=== PATIENT | female | born 2000 | race Caucasian/White ===

== ENCOUNTER 2021-01-20 08:08 | Outpatient (RCR) | payer BC, SELFPAY ==
[2021-01-20 08:47] VITALS: BP 116/76
== END 2021-03-10 09:39 | disposition home or self-care (01) ==
LOC: ANHOBOP 08:08
PROVIDERS: Visit Provider Obstetrics & Gynecology
DX: O24.419 Gestational diabetes mellitus in pregnancy, unspecified control (principal); Z3A.32 32 weeks gestation of pregnancy
CPT/HCPCS: 59025

== ENCOUNTER 2021-01-27 13:20 | Outpatient (CLI) | payer BC, SELFPAY ==
[2021-01-27] VITALS (15 sets, daily range): BP systolic 96–127; BP diastolic 68–81; PULSE 92–121; TEMP 36.8; BMI 31.6
[2021-01-27 14:42] LABS: Basophils Percent Auto 0.2 % (0.2-1.2); Eosinophils Absolute Auto 0.1 K/mm3 (0-0.3); Eosinophils Percent Auto 0.5 % (0-4.4); Hematocrit 38.4 % (37.0-47.0); Immature Granulocyte Absolute 0.04 K/mm3 (0.00-0.031); Immature Granulocyte Percent A 0.4 % (0-0.5); Lymphocytes Absolute Auto 1.69 K/mm3 (0.9-3.2); Lymphocytes Percent Auto 17.8 % (18.3-44.2); Mean Corpuscular HGB Conc 33.9 g/dl (32-36); Mean Corpuscular Hemoglobin 31.6 pg (26-34); Mean Corpuscular Volume 93.2 fl (80-100); Mean Platelet Volume 10.8 fl (7.4-10.4); Monocytes Absolute Auto 0.7 K/mm3 (0.1-0.6); Monocytes Percent Auto 7.6 % (2.6-8.5); Neutrophils Percent Auto 73.5 % (45.5-73.1); Platelet Count Result 204 k/mm3 (150-375); Red Blood Count 4.12 M/mm3 (4.2-5.4); Red Cell Distribution Width 12.9 % (11.5-14.5); White Blood Count 9.5 K/mm3 (4.5-10.0)
[2021-01-27 14:54] LABS: Add Urine Microscopic? YES; Appearance Urine Clear (Clear); Bilirubin Urine Negative (Negative); Blood Urine Negative (Negative); Color Urine Yellow (Yellow); Glucose Urine UA 2+ mg/dL (Negative); Ketones Urine Negative (Negative); Leukocyte Esterase Ur Negative LEU/UL (Negative); Mucus Urine Rare /lpf; Nitrate Urine Negative (Negative); Protein Urine Negative (Negative); Squamous Epithelial Cell Urine Occasional /hpf (Few); Urobilinogen Urine Negative mg/dL (<2.0); WBC Urine 0-3 /hpf
[2021-01-27 14:56] LABS: Alanine Aminotransferase 10 U/L (4-35); Albumin Level 3.5 g/dL (3.5-5.1); Alkaline Phosphatase 166 U/L (38-126); Anion Gap 5 mmol/L (8-16); Aspartate Amino Transferase 20 U/L (14-36); Bilirubin,Total 0.2 mg/dL (0.2-1.3); Blood Urea Nitrogen 13 mg/dL (7-17); Calcium 8.9 mg/dL (8.4-10.2); Carbon Dioxide 23 mmol/L (22-30); Chloride 103 mmol/L (98-107); Estimated Glomerular Filt Rate > 60; Glucose 93 mg/dL (65-110); Potassium 3.5 mmol/L (3.4-5.0); Sodium 131 mmol/L (137-145); Uric Acid 3.4 mg/dL (2.5-7.5)
[2021-01-27] MEDS: ACETAMINOPHEN 325 MG TABLET 650 MG PO (15:01)
[2021-01-27 15:41] LABS: Total Protein Urine Random 6 mg/dL
[2021-01-27 15:43] LABS: Creatinine Urine 94.5 mg/dL; Ur Ttl Prot Creatinine Ratio 0.06 mg/mg (0-0.20)
--- NOTE | 2021-01-27 16:14 | PC.NURSE ---
Pt just finished eating. Pt's headache is down to a 3.
--- NOTE | 2021-01-27 16:23 | PC.NURSE ---
Dr. Ugarte informed of this 33 1/7 wk gestationa pt with Type 2DM on insulin with headache and blurred vision that prompted HIP evaluation, NST only became reactive after pt was able to eat. informed of lab results and BP's. Headache has decreased from a 6 to a 3. Orders received for discharge.
== END 2021-01-27 16:30 | disposition home or self-care (01) ==
LOC: ANHOBOP 13:25 → ANHOBPP 13:27
PROVIDERS: Visit Provider Obstetrics & Gynecology
DX: O13.9 Gestational [pregnancy-induced] hypertension without significant proteinuria, unspecified trimester (principal); Z3A.00 Weeks of gestation of pregnancy not specified
CPT/HCPCS: 36415; 59025; 80053; 81001; 82570; 84156; 84550; 85025; 99199; A9270

== ENCOUNTER 2021-02-23 00:01 | Inpatient (IN) | payer BC, SELFPAY ==
[2021-02-23] VITALS (27 sets, daily range): BP systolic 93–129; BP diastolic 50–85; PULSE 78–141; RESP 18–20; TEMP 36.3–37.4; BMI 33.3
--- OUTSIDE RECORDS SUMMARY | 2021-02-23 00:04 | XMS_ITS | Encounter Summary ---
:2000 Author Care Team Providers Name Role Phone Junito Clement Primary Care Provider [phone] Reason for Visit OB visit Assessment and Plan Assessment Note Patient is ___weeks . Discu ssed plan. 1. Routine care Discussion Note: None recorded.Patient educational handouts: No information available. Plan of Care Reminders Provider Appointments Ob Routine Idalia Hedy 02/28/2021 MD Mily 2:45PM ? Ob Routine Idalia Th erese 03/07/2021 MD Mily 2:45PM ? Ob Routine Idalia Th erese 03/14/2021 MD Mily 2:45PM Lab None ? ? recorded. Referral None ? ? recorded. Procedures None ? ? recorded. Surgeries None ? ? recorded. Imaging None ? ? recorded. Medications Name Start Date ? ? Baqsimi 3 mg/actuation nasal spray ? USE 1 SPRAY INTO THE NOSE NEEDED DIRECTED BD Ultra-Fine Mini Pen Needle 31 gauge x 05/11 ? USE TWICE DAILY DIRECTED Contour Next Test Strips ? USE 1 STRIP TO CHECK GLUCOSE ONCE DAILY Dexcom G6 Phonograph Needle Tip Maker misc ? USE DIRECTED
--- OUTSIDE RECORDS SUMMARY | 2021-02-23 00:04 | XMS_ITS | Encounter Summary ---
:2000 Author Care Team Providers Name Role Phone Junito Clement Primary Care Provider [phone] Reason for Visit None recorded. Assessment and Plan 1. Pre-existing type 2 diabetes mellitus in ? US, obstetric, follow-up Discussion Note: None recorded.Patient educational handouts: No [...] recorded. Surgeries None ? ? recorded. Imaging [place] [facility], Follow-up 02/14/2021 Medications Name Start Date ? ? Baqsimi 3 mg/actuation nasal spray ? USE 1 SPRAY INTO THE NOSE NEEDED DIRECTED BD Ultra-Fine Mini Pen Needle 31 gauge x 3/16 ? USE TWICE DAILY DIRECTED Contour Next Test Strips ? USE 1 STRIP TO CHECK GLUCOSE ONCE DAILY Dexcom G6 Filler And Trimmer misc ?
--- OUTSIDE RECORDS SUMMARY | 2021-02-23 00:04 | XMS_ITS | Encounter Summary ---
:2000 Author Care Team Providers Name Role Phone Junito Clement Primary Care Provider [phone] Reason for Visit OB visit Assessment and Plan 1. Group B Streptococcus carrier 2. Pre-existing type 2 diabetes mellitus in 3. Depressive disorder Discussion Note: None recorded.Patient educational handouts: No [...] Ultra-Fine Mini Pen Needle 31 gauge x /16 ? USE TWICE DAILY DIRECTED Contour Next Test Strips ? USE 1 STRIP TO CHECK GLUCOSE ONCE DAILY Dexcom G6 Seed Analysis Laboratory Assistant misc ? USE
--- OUTSIDE RECORDS SUMMARY | 2021-02-23 00:04 | XMS_ITS | Encounter Summary ---
:2000 Author Care Team Providers Name Role Phone Junito Clement Primary Care Provider [phone] Reason for Visit None recorded. Assessment and Plan 1. Pre-existing type 2 diabetes mellitus in ? non-stress test Discussion Note: None recorded.Patient educational handouts: No [...] recorded. Surgeries None ? ? recorded. Imaging Non-stress [place] Test 02/14/2021 Medications Name Start Date ? ? Baqsimi 3 mg/actuation nasal spray ? USE 1 SPRAY INTO THE NOSE NEEDED DIRECTED BD Ultra-Fine Mini Pen Needle 31 gauge x 05/11 ? USE TWICE DAILY DIRECTED Contour Next Test Strips ? USE 1 STRIP TO CHECK GLUCOSE ONCE DAILY Dexcom G6 Loan Processor misc ? U
--- OUTSIDE RECORDS SUMMARY | 2021-02-23 00:04 | XMS_ITS | Encounter Summary ---
:2000 Author Care Team Providers Name Role Phone Junito Clement Primary Care Provider [phone] Reason for Visit None recorded. Assessment and Plan 1. condition affecting obs tetrical care of mother ? US, obstetric, biophysical profile + non-stress test Discussion Note: None recorded.Patient educational handouts: No information available. Plan of Care Reminders Provider Appointments Ob Routine Idalia Hedy 02/28/2021 MD Mily 2:45PM ? Ob Routine Idalia Th erese 03/07/2021 MD Mily 2:45PM ? Ob Routine Idalia Th erese 03/14/2021 MD Mily 2:45PM Lab None recorded. ? ? Referral None recorded. ? ? Procedures None recorded. ? ? Surgeries None recorded. ? ? Imaging US, Obstetric, [facility] Biophysical Profile + 02/10/2021 Non-stress Test Medications Name Start Date ? ? Baqsimi 3 mg/actuation nasal spray ? USE 1 SPRAY INTO THE NOSE NEEDED DIRECTED BD Ultra-Fine Mini Pen Needle 31 gauge x 05/11 ? USE TWICE DAILY DIRECTED Contour Next Test Strips ? USE 1 STRIP TO CHECK GLUCOSE ONCE DAILY
--- OUTSIDE RECORDS SUMMARY | 2021-02-23 00:04 | XMS_ITS | Encounter Summary ---
:2000 Author Care Team Providers Name Role Phone Junito Clement Primary Care Provider [phone] Reason for Visit None recorded. Assessment and [...] ? recorded. Imaging Non-stress [place] Test 02/17/2021 Medications Name Start Date ? ? Baqsimi 3 mg/actuation nasal spray ? USE 1 SPRAY INTO THE NOSE NEEDED DIRECTED BD Ultra-Fine Mini Pen Needle 31 gauge x /16 ? USE TWICE DAILY DIRECTED Contour Next Test Strips ? USE 1 STRIP TO CHECK GLUCOSE ONCE DAILY Dexcom G6 Mixer Operator Tablets misc ? U
--- OUTSIDE RECORDS SUMMARY | 2021-02-23 00:04 | XMS_ITS | Encounter Summary ---
:2000 Author Care Team Providers Name Role Phone Junito Clement Primary Care Provider [phone] Reason for Visit None recorded. Assessment and [...] ? recorded. Imaging Non-stress [place] Test 02/21/2021 Medications Name Start Date ? ? Baqsimi 3 mg/actuation nasal spray ? USE 1 SPRAY INTO THE NOSE NEEDED DIRECTED BD Ultra-Fine Mini Pen Needle 31 gauge x /16 ? USE TWICE DAILY DIRECTED Contour Next Test Strips ? USE 1 STRIP TO CHECK GLUCOSE ONCE DAILY Dexcom G6 Hand Sewer misc ? U
--- OUTSIDE RECORDS SUMMARY | 2021-02-23 00:04 | XMS_ITS ---
:2000 Author Care Team Providers Name Role Phone MILES RANGEL Primary Care Provider [phone] Allergies Code Code System Name Reaction Severity Status Onset 7 RxNorm Metformin Abdominal Pain Moderate to Active ? Severe Medications Name Status Start Date Stop Date ? ? Baqsimi 3 mg/actuation nasal spray Active ? Not available USE 1 SPRAY INTO THE NOSE NEEDED DIRECTED BD Ultra-Fine Mini Pen Needle 31 gauge x 3/16 Active ? Not available USE TWICE DAILY DIRECTED Contour Next Test Strips Active ? Not kelly ilable USE 1 STRIP TO CHECK GLUCOSE ONCE DAILY Dexcom G6 [facility] Assistant misc Active ? Not avai lable USE DIRECTED Dexcom G6 Sensor device Active ? Not avai lable CHANGE SENSOR EVERY 10 DAYS Dexcom G6 Transmitter device Active ? Not available CHANGE EVERY 90 DAYS doxycycline hyclate 100 mg capsule Completed ? 11/30/2020 TAKE 1 CAPSULE BY MOUTH TWICE DAILY FOR 7 DAYS fluticasone propionate 50 mcg/actuation Completed ? 01/14/2021 nasal spray,suspension Humulin N NPH U-100 Insulin (isophane Active ? Not available susp) 100 unit/mL subcutaneous Humulin N NPH U-100 Insulin KwikPen 100 unit/mL (3 mL) subcutane ous Active ? Not available INJECT 34 UNITS UNDER THE SKIN IN THE MORNING AND 36 UNITS AT B EDTIME insulin aspart (U-100) 100 unit/mL (3 Active ? Not available mL) subcutaneous pen insulin lispro (U-100) 100 unit/mL Active ? Not available subcutaneous pen
--- OUTSIDE RECORDS SUMMARY | 2021-02-23 00:05 | XMS_ITS | Encounter Summary ---
:2000 Author Care Team Providers Name Role Phone Junito Clement Primary Care Provider [phone] Reason for Visit None recorded. Assessment and Plan None recorded.Discussion Note: None recorded.Patient educational handouts: No information [...] TO CHECK GLUCOSE ONCE DAILY Dexcom G6 Screen Roller misc ? USE DIRECTED Dexcom G6 Sensor device ? CHANGE SENSOR EVERY 10 DAYS Dexcom G6 Transmitter device ? CHANGE EVERY 90 DAYS
--- OUTSIDE RECORDS SUMMARY | 2021-02-23 00:05 | XMS_ITS | Encounter Summary ---
:2000 Author Care Team Providers Name Role Phone Junito Clement Primary Care Provider [phone] Reason for Visit OB visit Assessment and Plan 1. Type 2 diabetes mellitus ? HbA1c (hemoglobin A1c), bl ood 2. Routine care Discussion Note: None recorded.Patient educational handouts: No information available. Plan of Care Reminders Provider Appointments Ob Routine Idalia Hedy 02/28/2021 MD Mily 2:45PM ? Ob Routine Idalia Ketan randhawa 03/07/2021 MD Mily 2:45PM ? Ob Routine Idalia Ketan ere 03/14/2021 MD Mily 2:45PM Lab HbA1C [facility] (Hemoglobin a1C), 11/30/2020 Hospital (Lab) Blood Referral None ? ? recorded. Procedures None [...]
--- OUTSIDE RECORDS SUMMARY | 2021-02-23 00:05 | XMS_ITS | Encounter Summary ---
:2000 Author Care Team Providers Name Role Phone Junito Clement Primary Care Provider [phone] Reason for Visit None recorded. Assessment and [...] ? recorded. Imaging Non-stress [place] Test 02/10/2021 Medications Name Start Date ? ? Baqsimi 3 mg/actuation nasal spray ? USE 1 SPRAY INTO THE NOSE NEEDED DIRECTED BD Ultra-Fine Mini Pen Needle 31 gauge x 05/11 ? USE TWICE DAILY DIRECTED Contour Next Test Strips ? USE 1 STRIP TO CHECK GLUCOSE ONCE DAILY Dexcom G6 Assistant Professor Of Music misc ? U
--- OUTSIDE RECORDS SUMMARY | 2021-02-23 00:05 | XMS_ITS | Encounter Summary ---
:2000 Author Care Team Providers Name Role Phone Junito Clement Primary Care Provider [phone] Reason for Visit OB visit Assessment and Plan 1. Type 2 diabetes mellitus 2. Depressive disorder 3. Routine care Discussion Note: None recorded.Patient educational [...] TO CHECK GLUCOSE ONCE DAILY Dexcom G6 Salt Refiner misc ? USE DIRECTED
--- OUTSIDE RECORDS SUMMARY | 2021-02-23 00:05 | XMS_ITS | Encounter Summary ---
:2000 Author Care Team Providers Name Role Phone Junito Clement Primary Care Provider [phone] Reason for Visit OB visit Assessment and Plan Assessment Note Patient is ___weeks . Discu ssed plan. 1. Pre-existing type 2 diabetes mellitus in 2. Group B Streptococcus carrier Discussion Note: None recorded.Patient educational handouts: No [...] Ultra-Fine Mini Pen Needle 31 gauge x 16 ? USE TWICE DAILY DIRECTED Contour Next Test Strips ? USE 1 STRIP TO CHECK GLUCOSE ONCE [place]
--- OUTSIDE RECORDS SUMMARY | 2021-02-23 00:05 | XMS_ITS | Encounter Summary ---
:2000 Author Care Team Providers Name Role Phone Junito Clement Primary Care Provider [phone] Reason for Visit None recorded. Assessment and [...] ? recorded. Imaging Non-stress [place] Test 01/31/2021 Medications Name Start Date ? ? Baqsimi 3 mg/actuation nasal spray ? USE 1 SPRAY INTO THE NOSE NEEDED DIRECTED BD Ultra-Fine Mini Pen Needle 31 gauge x / ? USE TWICE DAILY DIRECTED Contour Next Test Strips ? USE 1 STRIP TO CHECK GLUCOSE ONCE DAILY Dexcom G6 Brush Polisher misc ? U
--- OUTSIDE RECORDS SUMMARY | 2021-02-23 00:05 | XMS_ITS | Encounter Summary ---
:2000 Author Care Team Providers Name Role Phone Junito Clement Primary Care Provider [phone] Reason for Visit None recorded. Assessment and [...] ? recorded. Imaging Non-stress [place] Test 02/03/2021 Medications Name Start Date ? ? Baqsimi 3 mg/actuation nasal spray ? USE 1 SPRAY INTO THE NOSE NEEDED DIRECTED BD Ultra-Fine Mini Pen Needle 31 gauge x /16 ? USE TWICE DAILY DIRECTED Contour Next Test Strips ? USE 1 STRIP TO CHECK GLUCOSE ONCE DAILY Dexcom G6 Route Clerk misc ? U
--- OUTSIDE RECORDS SUMMARY | 2021-02-23 00:05 | XMS_ITS | Encounter Summary ---
:2000 Author Care Team Providers Name Role Phone Junito Clement Primary Care Provider [phone] Reason for Visit OB visit Assessment and Plan 1. Type 2 diabetes mellitus 2. Routine care Discussion Note: None recorded.Patient [...] TO CHECK GLUCOSE ONCE DAILY Dexcom G6 Software Developer Consultant misc ? USE DIRECTED Dexcom G6 Sensor device ?
--- OUTSIDE RECORDS SUMMARY | 2021-02-23 00:05 | XMS_ITS | Encounter Summary ---
:2000 Author Care Team Providers Name Role Phone Junito Clement Primary Care Provider [phone] Reason for Visit OB problem UTI Assessment and Plan 1. Urinary symptoms ? urinalysis, dipstick ? nitrofurantoin monohydrate /macrocrystals 100 mg capsule Discussion Note: None recorded.Patient educational handouts: No information available. Plan of Care Reminders Provider Appointments Ob Routine Idalia Hedy 02/28/2021 MD Mily 2:45PM ? Ob Routine Idalia Th erese 03/07/2021 MD Mily 2:45PM ? Ob Routine Idalia Th erese 03/14/2021 MD Mily 2:45PM Lab Urinalysis, Deangelo rush Dipstick 12/17/2020 Referral None ? ? recorded. Procedures None ? ? recorded. Surgeries None ? ? recorded. Imaging None ? ? recorded. Medications Name Start Date ? ? Baqsimi 3 mg/actuation nasal spray ? USE 1 SPRAY INTO THE NOSE NEEDED DIRECTED BD Ultra-Fine Mini Pen Needle 31 gauge x 16 ? USE TWICE DAILY DIRECTED Contour Next Test Strips ? U
--- OUTSIDE RECORDS SUMMARY | 2021-02-23 00:05 | XMS_ITS | Encounter Summary ---
:2000 Author Care Team Providers Name Role Phone Junito Clement Primary Care Provider [phone] Reason for Visit None recorded. Assessment and Plan 1. Pre-existing type 2 diabetes mellitus in Diet teaching completed over the phone r /t pts schd. Pt is a type II diabetic. [facility] and [facility] started her on a fast acting insulin and she is on a long acting insulin as well. [facility]2020 and will f/u with [facility] with BS in the meanttime since they started her on a fast acting insulin. Went over ideal ranges for FBS and pp BS. Went over carb counting and carb ranges for each m eal/snack. Gave ideas for foods to eat for meals/snacks. Discussed drink options and to avoid soda and juice. Pt mainly drinks water and sometimes diet soda. Told pt to cut out soda if possible and try sugar free water enhancers instead. Told pt she can go online to ADA for meal options or to look up low carb meal recipes online for ideas as well. Went over nutr ition label with pt and how to read tota l number of carbs on nutrition label and discussed importance of serving sizes as well to stay within her carb range for each meal. Pt was eating a lot of fruit a nd went over serving sizes for fruit and that it is high in sugars and will have to watch this closely. Pt is going out of town this weekend and wanted tips on eating out. Told pt to not get any fried f oods. If she gets something on a bun to cut out the bun. Try to get meat/protein with vegetables as a side. Pts questions were answered and pt will call with any concerns with sugars, but otherwise will f/u on BS with MFM. Pt verbalized under standing. bnGINGER marie ? non-stress test Discussion Note: None recorded.Patient educational handouts: No information available. Plan of Care Reminders Provider Appointments Ob Routine Idalia Hedy 02/28/2021 MD Mily 2:45PM
--- OUTSIDE RECORDS SUMMARY | 2021-02-23 00:05 | XMS_ITS | Encounter Summary ---
:2000 Author Care Team Providers Name Role Phone Junito Clement Primary Care Provider [phone] Reason for Visit None recorded. Assessment and [...] Ob Routine Idalia Th erese 03/14/2021 MD Mliy 2:45PM Lab None recorded. ? ? Referral None recorded. ? ? Procedures None recorded. ? ? Surgeries None recorded. ? ? Imaging US, Obstetric, [facility] Biophysical Profile + 02/03/2021 Non-stress Test Medications Name Start Date ? ? Baqsimi 3 mg/actuation nasal spray ? USE 1 SPRAY INTO THE NOSE NEEDED DIRECTED BD Ultra-Fine Mini Pen Needle 31 gauge x /16 ? USE TWICE DAILY DIRECTED Contour Next Test Strips ? USE 1 STRIP TO CHECK GLUCOSE ONCE DAILY
--- OUTSIDE RECORDS SUMMARY | 2021-02-23 00:05 | XMS_ITS | Encounter Summary ---
:2000 Author Care Team Providers Name Role Phone Junito Clement Primary Care Provider [phone] Reason for Visit OB visit Assessment and Plan 1. Depressive disorder 2. Group B Streptococcus carrier 3. Pre-existing type 2 diabetes mellitus in Discussion Note: None recorded.Patient educational handouts: No [...] TO CHECK GLUCOSE ONCE DAILY Dexcom G6 Chief Catalyst Operator misc ? USE
--- OUTSIDE RECORDS SUMMARY | 2021-02-23 00:05 | XMS_ITS | Encounter Summary ---
:2000 Author Care Team Providers Name Role Phone Junito Clement Primary Care Provider [phone] Reason for Visit OB problem Assessment and Plan 1. Bacterial vaginosis in pregna ncy ? metronidazole 0.75 % vagin al gel Discussion Note: None recorded.Patient educational handouts: No [...] TO CHECK GLUCOSE ONCE DAILY Dexcom G6 Welding Engineer misc ? USE DIRECTED Dexcom G6 Sensor device ?
[2021-02-23 00:40] LABS: Basophils Percent Auto 0.2 % (0.2-1.2); Eosinophils Absolute Auto 0.1 K/mm3 (0-0.3); Eosinophils Percent Auto 0.8 % (0-4.4); Hematocrit 37.4 % (37.0-47.0); Hemoglobin 12.9 g/dL (12.0-15.0); Immature Granulocyte Absolute 0.06 K/mm3 (0.00-0.031); Immature Granulocyte Percent A 0.5 % (0-0.5); Lymphocytes Absolute Auto 2.61 K/mm3 (0.9-3.2); Lymphocytes Percent Auto 23.3 % (18.3-44.2); Mean Corpuscular HGB Conc 34.5 g/dl (32-36); Mean Corpuscular Hemoglobin 31.2 pg (26-34); Mean Corpuscular Volume 90.3 fl (80-100); Mean Platelet Volume 10.9 fl (7.4-10.4); Monocytes Absolute Auto 0.8 K/mm3 (0.1-0.6); Neutrophils Absolute Auto 7.6 K/mm3 (1.3-6.7); Neutrophils Percent Auto 68.2 % (45.5-73.1); Platelet Count Result 219 k/mm3 (150-375); Red Blood Count 4.14 M/mm3 (4.2-5.4); Red Cell Distribution Width 13.7 % (11.5-14.5); White Blood Count 11.2 K/mm3 (4.5-10.0)
--- NOTE | 2021-02-23 00:43 | LDADM ---
This patient, Soni Jolley, was admitted to Labor/Delivery/Recovery 109 on 02/23/21 at 00:01. Plans for labor, pain management and were discussed with patient. Patient/family oriented to hospital policies and general routines including ID bracelet, bed and alarms, visiting hours, pain management, procedures, bathroom and other care routines, personal items, smoking policy, room service/diet and guest tray routines, security routines, and visiting hours. Patient/Family are encouraged to report perceived risks to care and to ask questions if they do not understand what they are told or what they should do. See OBIX for further documentation.
[2021-02-23 00:59] LABS: Alanine Aminotransferase 16 U/L (4-35); Albumin Level 3.6 g/dL (3.5-5.1); Alkaline Phosphatase 217 U/L (38-126); Anion Gap 3 mmol/L (8-16); Aspartate Amino Transferase 25 U/L (14-36); Bilirubin,Total 0.2 mg/dL (0.2-1.3); Blood Urea Nitrogen 14 mg/dL (7-17); Calcium 8.9 mg/dL (8.4-10.2); Carbon Dioxide 19 mmol/L (22-30); Chloride 108 mmol/L (98-107); Estimated CRCL calculation 135 ml/min; Estimated Glomerular Filt Rate > 60; Glucose 145 mg/dL (65-110); Potassium 3.9 mmol/L (3.4-5.0); Sodium 130 mmol/L (137-145)
[2021-02-23] MEDS: DINOPROSTONE 10 MG VAG INSERT VAGINAL ×2 (01:05→14:12)
[2021-02-23 04:30] LABS: Glucose Point of Care 101 mg/dl (65-105)
--- NOTE | 2021-02-23 06:22 | WPDANESEPP ---
Anes - Eval Pre Procedure Procedure: labor epidural Date/Time: 02/23/21 06:22 Surgeon: ami Preop Diagnosis: pain during labor Pre Op Diagnosis: IOL Patient Data Age: 20 Gender: F Height: 1.52 m Weight: 77.5 kg Last Vital Signs Temp 36.4 C L 02/23/21 04:27 Pulse 85 02/23/21 03:01 BP 93/59 L 02/23/21 03:01 Allergies Allergy/AdvReac Type Severity Reaction Status Date / Time metformin AdvReac Nausea Verified 02/23/21 01:38 Home Medications Medication Instructions Recorded Confirmed Type insulin NPH isoph U-100 human 40 unit SUBCUT QACBREAK 01/27/21 02/23/21 History [Humulin N NPH Insulin KwikPen] insulin NPH isoph U-100 human 48 unit SUBCUT HS 01/27/21 02/23/21 History [Humulin N NPH Insulin KwikPen] insulin lispro [Humalog KwikPen 20 unit SUBCUT QACBREAK 01/27/21 02/23/21 History Insulin] insulin lispro [Humalog KwikPen 28 unit SUBCUT QACDINNER 01/27/21 02/23/21 History Insulin] insulin lispro [Humalog KwikPen 28 unit SUBCUT QACLUNCH 01/27/21 02/23/21 History Insulin] sertraline 50 mg PO DAILY 01/27/21 02/23/21 History aspirin [Aspirin Low Dose] 162 mg PO DAILY 02/12/21 02/23/21 History Laboratory Tests 02/23/21 02/23/21 02/23/21 00:28 00:28 00:28 WBC 11.2 K/mm3 H K/mm3 (4.5-10.0) RBC 4.14 M/mm3 L M/mm3 (4.2-5.4) Hgb 12.9 g/dL g/dL (12.0-15.0) Hct 37.4 % % (37.0-47.0) MCV 90.3 fl fl (80-100) MCH 31.2 pg pg (26-34) MCHC 34.5 g/dl g/dl (32-36) RDW 13.7 % % (11.5-14.5) Plt Count 219 k/mm3 k/mm3 (150-375) MPV 10.9 fl H fl (7.4-10.4) Immature Gran % (Auto) 0.5 % % (0-0.5) Neut % (Auto) 68.2 % % (45.5-73.1) Lymph % (Auto) 23.3 % % (18.3-44.2) [place] % (Auto) 7.0 % % (2.6-8.5) Eos % (Auto) 0.8 % % (0-4.4) Baso % (Auto) 0.2 % % (0.2-1.2) Lymph # (Auto) 2.61 K/mm3 K/mm3 (0.9-3.2) [place] # (Auto) 0.8 K/mm3 H K/mm3 (0.1-0.6) Eos # (Auto) 0.1 K/mm3 K/mm3 (0-0.3) Baso # (Auto) 0.0 K/mm3 K/mm3 (0.0-0.1) Abs Immat Gran (auto) 0.06 K/mm3 H K/mm3 (0.00-0.031) Absolute Neuts (auto) 7.6 K/mm3 H K/mm3 (1.3-6.7) Absolute Nucleated RBC 0.0 K/mm3 K/mm3 (0.0-0.012) Nucleated RBC % 0.0 % % (0.0-0.2) Sodium 130 mmol/L L mmol/L (137-145) Potassium 3.9 mmol/L mmol/L (3.4-5.0) Chloride 108 mmol/L H mmol/L (98-107) Carbon Dioxide 19 mmol/L L mmol/L (22-30) Anion Gap 3 mmol/L L mmol/L (8-16) BUN 14 mg/dL mg/dL (7-17) Creatinine 0.50 mg/dL L mg/dL (0.7-1.0) Estim Creat Clear Calc 135 ml/min ml/min Estimated GFR > 60 (59 - ) Glucose 145 mg/dL H mg/dL (65-110) POC Capillary Glucose Calcium 8.9 mg/dL mg/dL (8.4-10.2) Total Bilirubin 0.2 mg/dL mg/dL (0.2-1.3) AST 25 U/L U/L (14-36) ALT 16 U/L U/L (4-35) Alkaline Phosphatase 217 U/L H U/L (38-126) Total Protein 6.0 g/dL L g/dL (6.3-8.2) Albumin 3.6 g/dL g/dL (3.5-5.1) RPR Pending Blood Type Antibody Screen 02/23/21 02/23/21 01:17 04:27 WBC RBC Hgb Hct MCV MCH MCHC RDW Plt Count MPV Immature Gran % (Auto) Neut % (Auto) Lymph % (Auto) [place] % (Auto) Eos % (Auto) Baso % (Auto) Lymph # (Auto) [place] # (Auto) Eos # (Auto) Baso # (Auto) Abs Immat Gran (auto) Absolute Neuts (auto) Absolute Nucleated RBC Nucleated RBC % Sodium Potassium Chloride Carbon Dioxide Anion Gap
[2021-02-23 07:11] LABS: Glucose Point of Care 127 mg/dl (65-105)
--- NOTE | 2021-02-23 07:39 | PM.IMHP ---
H&P: HPI History of Present Illness Date/Time: 02/23/21 07:39 Chief Complaint: induction of labor Narrative: Soni is a 20yo G1 at 37.0 for IOL for uncontrolled DM2. MFM has managed insulin and recommended delivery at 37w. has also been complicated by GBS pos, depression on zoloft, and CF carrier, but FOB neg. EFW was 55% most recently. Review of Systems Review of Systems: All systems reviewed & are unremarkable except as noted in HPI and below PMFSH Past Medical History Medical History (Updated 02/23/21 @ 06:23 by Nell Maradiaga CRNA) Depression Gestational diabetes mellitus (GDM) affecting eighth IUP (intrauterine ), incidental Obesity (BMI 30-39.9) Family History Family History (Updated 02/12/21 @ 14:49 by Leatha Khan RN) Grandparent Hypertension Grandparent Hypertension Grandparent Breast cancer in female Social History Social History Smoking status: Never smoker Substance use: never Spiritual care concerns: No Meds Home Medications and Allergies Home Medications Medication Instructions Recorded Confirmed Type insulin NPH isoph U-100 human 40 unit SUBCUT QACBREAK 01/27/21 02/23/21 History [Humulin N NPH Insulin KwikPen] insulin NPH isoph U-100 human 48 unit SUBCUT HS 01/27/21 02/23/21 History [Humulin N NPH Insulin KwikPen] insulin lispro [Humalog KwikPen 20 unit SUBCUT QACBREAK 01/27/21 02/23/21 History Insulin] insulin lispro [Humalog KwikPen 28 unit SUBCUT QACDINNER 01/27/21 02/23/21 History Insulin] insulin lispro [Humalog KwikPen 28 unit SUBCUT QACLUNCH 01/27/21 02/23/21 History Insulin] sertraline 50 mg PO DAILY 01/27/21 02/23/21 History aspirin [Aspirin Low Dose] 162 mg PO DAILY 02/12/21 02/23/21 History Allergies Allergy/AdvReac Type Severity Reaction Status Date / Time metformin AdvReac Nausea Verified 02/23/21 01:38 Vital Signs Vital Signs - 24 hr 02/23/21 00:28 02/23/21 00:30 02/23/21 00:45 Temperature 97.4 F L Pulse Rate 100 102 H 96 Respiratory Rate Blood Pressure 128/76 117/77 126/73 02/23/21 01:00 02/23/21 01:15 02/23/21 01:31 Temperature Pulse Rate 89 91 93 Respiratory Rate Blood Pressure 120/72 129/84 121/74 02/23/21 01:45 02/23/21 02:00 02/23/21 02:16 Temperature Pulse Rate 97 78 92 Respiratory Rate Blood Pressure 110/78 129/79 120/74 02/23/21 02:30 02/23/21 02:45 02/23/21 03:01 Temperature Pulse Rate 89 82 85 Respiratory Rate Blood Pressure 122/80 93/51 L 93/59 L 02/23/21 04:27 02/23/21 07:03 Temperature 97.5 F L 98.5 F Pulse Rate 93 Respiratory Rate 18 Blood Pressure 127/68 Exam Const: General: no acute distress Resp: Effort & Inspection: normal respiratory effort Auscultation: clear to auscultation bilaterally Cardio: Rate: regular rate Rhythm: regular rhythm GI: GI Palp: Yes Soft to palpation Extrem: General: normal to inspection H&P: Results Labs Labs: Short CBC 02/23/21 Range/Units 00:28 WBC 11.2 H (4.5-10.0) K/mm3 Hgb 12.9 (12.0-15.0) g/dL Hct 37.4 (37.0-47.0) % Plt Count 219 (150-375) k/mm3 [facility] 02/23/21 00:28 Sodium 130 L Potassium 3.9 Chloride 108 H Carbon Dioxide 19 L BUN 14 Creatinine 0.50 L Glucose 145 H Calcium 8.9 Liver Function 02/23/21 Range/Units 00:28 Total Bilirubin 0.2 (0.2-1.3) mg/dL AST 25 (14-36) U/L ALT 16 (4-35) U/L Alkaline Phosphatase 217 H (38-126) U/L Albumin 3.6 (3.5-5.1) g/dL Assessment and Plan Additional Plan Here for induction of labor-uncontrolled DM2 GBS pos cervidil, may need second cervidil. half of long acting insulin this am, full short acting this am, may have breakfast and lunch. FHT category 1
[2021-02-23] MEDS: INSULIN HUMAN NPH (*BKC) 100 UNITS/ML 20 UNITS SUB-Q (09:26)
[2021-02-23] MEDS: INSULIN ASPART (*BKC) 100 UNITS/ML 20 UNITS SUB-Q (09:27)
[2021-02-23 09:30] LABS: Glucose Point of Care 181 mg/dl (65-105)
[2021-02-23 10:30] LABS: Glucose Point of Care 166 mg/dl (65-105)
[2021-02-23 13:06] LABS: Rapid Plasma Reagin Non-Reactive (NonReactive)
[2021-02-23] MEDS: INSULIN ASPART (*BKC) 100 UNITS/ML 28 UNITS SUB-Q ×2 (13:21→17:35)
[2021-02-23 13:42] LABS: Glucose Point of Care 154 mg/dl (65-105)
[2021-02-23] MEDS: INSULIN HUMAN NPH (*BKC) 100 UNITS/ML 24 UNITS SUB-Q (21:10)
[2021-02-23] MEDS: INSULIN HUMAN REGULAR (*BKC) 100 UNITS/ML 8 UNITS SUB-Q (21:11)
[2021-02-23] MEDS: ACETAMINOPHEN 325 MG TABLET 650 MG PO (21:30)
[2021-02-24] VITALS (251 sets, daily range): BP systolic 50–139; BP diastolic 24–100; PULSE 61–175; RESP 18–20; TEMP 36.4–37.5; O2SAT 96–100
[2021-02-24] MEDS: LACTATED RINGERS 1,000 ML 125 ML IV CONT ×5 (02:20→22:21)
[2021-02-24] MEDS: OXYTOCIN 30 UNITS/NS 500 ML 30 UNITS/500 ML BAG 6 UNITS IV CONT (02:21)
[2021-02-24] MEDS: AMPICILLIN 2 GM/NS 100 ML 2 GM/100 ML BAG IVPB (02:21)
[2021-02-24] MEDS: AMPICILLIN 1 GM/NS 50 ML 1 GM/50 ML BAG IVPB ×5 (06:28→22:28)
[2021-02-24] MEDS: SERTRALINE HCL 50 MG TABLET PO (07:39)
[2021-02-24] MEDS: INSULIN HUMAN NPH (*BKC) 100 UNITS/ML 20 UNITS SUB-Q (07:40)
[2021-02-24] MEDS: fentaNYL CITRATE INJ (*CRX) 100 MCG/2 ML VIAL 50 MCG IV PUSH ×2 (08:16→09:39)
[2021-02-24] MEDS: ONDANSETRON INJ 4 MG/2 ML VIAL IV PUSH (09:43)
--- NOTE | 2021-02-24 16:38 | PM.OBPNLAB ---
Pain Control Date/time seen: 02/24/21 0825 VSS and afebrile Contractions irregular FHR category 1 Cervix 1-2/70/-2 AROM moderate amount of clear odorless fluid Anticipate
[2021-02-25] VITALS (161 sets, daily range): BP systolic 91–198; BP diastolic 54–171; PULSE 25–236; RESP 16–20; TEMP 36.8–38.1; O2SAT 86–100
[2021-02-25] MEDS: AMPICILLIN 1 GM/NS 50 ML 1 GM/50 ML BAG IVPB ×4 (02:57→17:53)
[2021-02-25] MEDS: ONDANSETRON INJ 4 MG/2 ML VIAL IV PUSH (05:21)
[2021-02-25] MEDS: LACTATED RINGERS 1,000 ML 125 ML IV CONT (05:24)
--- NOTE | 2021-02-25 09:17 | WPDHPUPDATE1 ---
History and Physical Update Update Date/Time: 02/25/21 09:17 History and Physical has been reviewed, including an updated exam of the patient. Pt has been complete and pushing for 2 hours. She did move baby to +1 station, +2 with pushing, but is exhausted and large caput. We attempted a vaccuum assisted vaginal delivery at +2 station, OA position. Over three contractions, three pulls, with three popoffs, the baby did descend but the descent stopped at +2 to +3 every time. Due to maternal exhaustion and failure to descend, will proceed with section. Discussed RBA, pt agrees readily. Ancef and azithromycin.
--- NOTE | 2021-02-25 09:31 | P.PCNOB_ITS ---
OB - Delivery Note Procedure Delivery date: 02/25/21 Procedure: primary low transverse section events: Prolonged Rupture of Membrane Intrapartal events: Prolonged Labor > 20 hours, Ceph-Pelvic Disproportion and F ailure to Progress in Labor Induction method: AROM, per pitocin protocol and per cervidil protocol Delivery monitor: external FHT and internal uterine Route of delivery: Indication for instrumentation: maternal exhaustion Laceration Description: None Specimen: Yes (placenta) Quantitative Blood Loss (ml): 310 Anesthesia type: General (epidural not adequate, spinal placed, level was high, so then received GETA) Disposition: floor Complications: none Narrative: Following failed VAVD (see previous note), the patient was taken to the OR and her epidural was dosed. It was noted that she did not have adequate anesthesia so a spinal was placed. FHT were checked before the spinal and after. After spinal they were 110s and mom's HR was 140. She was placed in dorsal supine position with left lateral tilt. SCDs and ramírez had previously been placed. She was prepped and draped in the normal sterile fashion. A Pfannensteil skin incision was made and carried through to the underlying layer of fascia. The fascia was incised in the midline and then extended laterally using Romero scissors. The muscles were in the midline and the peritoneum was entered bluntly. The peritoneal incision was extended inferiorly and superiorly with care to avoid the bladder. The bladder blade was then inserted, the vesicouterine peritoneum was grasped, incised with Metzenbaum scissors, and a bladder flap created. The bladder blade was reinserted. A low transverse uterine incision was made with a scalpel and extended bluntly. AROM was performed and fluid was noted to have thick meconium. A nurse elevated the head from below so it could be delivered, which it was then easily. The remainder of the baby followed, the nuchal cord was reduced. The baby was stimulated, the cord was clamped and cut, and the baby was handed off immediately for resuscitation. Cord blood was obtained and the placenta was then removed manually. The uterus was exteriorized. A moist lap sponge was used to curette the endometrium. The uterine incision was then closed with one layer of 0-Vicryl in a running, locking fashion. Good hemostasis was noted, despite poor tone of the uterus. We treated the atony with pitocin, methergine, and hemabate. The posterior cul de sac was irrigated with normal saline and cleared of all clot and debris. The uterus was returned to the abdomen. Both lateral gutters were then irrigated. The rectus muscles were inspected and found to be hemost atic. The fascia was reapproximated using 0-Vicryl in running fashion. The subcutaneous tissue was irrigated with normal saline and made hemostatic with Bovie electrocautery. The subcutaneous tissue was reapproximated with a layer of running 2-0 plain gut. The skin was then closed with 4-0 Vicryl in a subcuticular fashion. Steri strips and a bandage were applied. The uterus was evacuated. The patient tolerated the procedure very well. All counts were correct. She was awakened from general anesthesia and taken to the recovery room in good condition. [place] Baby Date of : 02/25/21 Time of : 10:04 Weeks of gestation at delivery: 37 Infant gender: Female Weight (pounds): 6 Weight (ounces): 9 presentation: vertex Placenta delivery description: Manual Removal cord vessel description: 3 Vessels and Nuchal Cord Narrative: apgars per nursery
[2021-02-25] MEDS: ceFAZolin 2 GM/D5W 50 ML 2 GM/50 ML BAG IVPB (09:35)
--- NOTE | 2021-02-25 10:45 | SUR.PHASEI ---
Pt arrived to recovery room via stretcher. Oral airway removed by AUTOMATIC CAR WASH ATTENDANT. Pt drowsy but wakes to name.
--- NOTE | 2021-02-25 10:55 | SUR.PHASEI ---
at bedside with RN assessing pt. Uterus somewhat boggy still but midline with scant bleeding. MD wants cytotec 800. MD remains at bedside.
[2021-02-25] MEDS: miSOPROStol 200 MCG TABLET 1000 MCG (11:00)
--- NOTE | 2021-02-25 11:13 | PM.OBPNVD ---
OB - PN: Subj Subjective Date/time seen: 02/25/21 11:13 Narrative: Spoke with Win Shafer (FOB), and their parents regarding the events related to complicated delivery of baby Mini. We discussed that baby was likely a little stressed from a long labor, pushing, and failed vaccuum. Then when the epidural didn't work well, and the spinal level was high and affected Soni's breathing, and she received general anesthesia, the baby also was likely affected some by this. IN addition, since she was so low in the pelvis, the delivery was not as smooth and easy as I would have hoped, though it was certainly not overly difficult for the station of the baby. I suspect that all of these factors together affected Mini greatly. We discussed the long resuscitation she required, transfer to [facility], and the cooling protocol. She is certainly in critical, but improved, condition currently. I answered their questions to the best of my ability. Support given. OB - PN: Obj Data Labs CBC & Chem 7: 02/23/21 00:28 02/23/21 00:28 OB - PN A/P Time Spent With Patient Time: Total time spent is greater than 50% in coordination of care (as documented) at patient's floor/unit and/or counseling patient:
--- NOTE | 2021-02-25 11:20 | SUR.PHASEI ---
Lewis Ge CRNA called for pain med orders as no recovery orders currently in and pt is hurting. Orders rc'vd fentanyl 25mcg IVP prn. DOCUMENT PHOTOGRAPHER states he will place order set.
--- NOTE | 2021-02-25 11:21 | SUR.PHASEI ---
Second RN called to room to assess pt status-pain, bleeding and tachycardia.
[2021-02-25] MEDS: fentaNYL CITRATE INJ (*CRX) 100 MCG/2 ML VIAL 25 MCG IV PUSH ×2 (11:22→11:30)
[2021-02-25] MEDS: OXYTOCIN 30 UNITS/NS 500 ML 30 UNITS/500 ML BAG 125 UNITS IV CONT (11:23)
--- NOTE | 2021-02-25 11:40 | SUR.PHASEI ---
called to bedside, review pt status. Pt now comfy after pain meds, bleeding min but pulse still high. Orders for EKG, Tylenol and multiple antibiotics gonsalo Yeh transport team in house, awaiting there approval to take pt into nursery via stretcher to see infant.
--- NOTE | 2021-02-25 11:54 | SUR.PHASEI ---
Gabriella HANSON called for orders to help pt shaking. Pt tachy but BP will not take accurately due to pts tremors. Orders rc;vd for demerol.
--- NOTE | 2021-02-25 11:55 | ECG_ITS ---
Measurements Intervals [place] Rate: 134 P: 51 ME: 129 QRS: 68 QRSD: 72 T: 31 QT: 265 QTc: 396 Interpretive Statements SINUS TACHYCARDIA DELAYED PRECORDIAL R/S TRANSITION LOW QRS VOLTAGE IN LIMB LEADS BASELINE ARTIFACT- I, II, III, AVR, AVL, AVF ABNORMAL ECG Electronically Signed On 02-25-2021 14:49:25 DESIGN MAKER by Vitor Salgado D.O.
--- NOTE | 2021-02-25 12:00 | PM.OBPNVD ---
OB - PN: Subj Subjective Date/time seen: 02/25/21 12:00 Narrative: Tachycardia in recovery room last 20 minutes. Giving fluid bolus. BS 140. Stat CBC and EKG. Pt denies CP, SOB. Is sleepy but pain now improved. Shaky, given demerol per anesthesia. Lochia moderate but wnl. I remain on unit. OB - PN: Obj Data Labs CBC & Chem 7: 02/23/21 00:28 02/23/21 00:28 OB - PN A/P Time Spent With Patient Time: Total time spent is greater than 50% in coordination of care (as documented) at patient's floor/unit and/or counseling patient:
--- NOTE | 2021-02-25 12:03 | SUR.PHASEI ---
EKG obtained at this time.
--- NOTE | 2021-02-25 12:05 | SUR.PHASEI ---
EKG results given to MD, further orders for consult. Exchange notified. Admitting Officer agrees to come down to review EKG and see pt shortly.
--- NOTE | 2021-02-25 12:05 | PM.OBPNVD ---
OB - PN: Subj Subjective Date/time seen: 02/25/21 12:05 Narrative: EKG showed sinus tachycardia with low QRS in extremity leads, possible anterior myocardial infaction, probably old. Will get cardiology consult and troponins. OB - PN: Obj Data Labs CBC & Chem 7: 02/23/21 00:28 02/23/21 00:28 OB - PN A/P Time Spent With Patient Time: Total time spent is greater than 50% in coordination of care (as documented) at patient's floor/unit and/or counseling patient:
--- NOTE | 2021-02-25 12:06 | SUR.PHASEI ---
Pt moved to nursery at this time to see infant and get update from balaji team about status.
[2021-02-25] MEDS: CLINDAMYCIN 900 MG/D5W 50 ML 900 MG/50 ML PIGGYBACK 50 MG IVPB ×2 (12:15→21:00)
[2021-02-25 12:31] LABS: Hematocrit 45.5 % (37.0-47.0); Hemoglobin 14.9 g/dL (12.0-15.0)
[2021-02-25] MEDS: LACTATED RINGERS 1,000 ML 999 ML IV CONT (12:44)
--- NOTE | 2021-02-25 12:50 | SUR.PHASEI ---
Pt moved back to recovery room at this time. Recovery completed. Will move to new room for continued pp care once bed ready. Pt sitting up visiting with family at this time. She and SO (caprice) tearful but appropriate. Pt denies any pain at this time.
[2021-02-25 13:39] LABS: Troponin I < 0.012 ng/mL (0.000-0.034)
--- NOTE | 2021-02-25 13:45 | PC.NURSE ---
Placenta sent with to [facility].
--- NOTE | 2021-02-25 13:45 | SUR.PHASEI ---
Pt transferred via stretcher to bed in room 110 for continue pp care.
--- NOTE | 2021-02-25 13:50 | PC.NURSE ---
General Supervisor at bedside
--- NOTE | 2021-02-25 13:55 | PM.CNCAR ---
Assessment and Plan Additional Plan 20-year-old white female who was noted to be a bit more tachycardic than is typically noted during and right after Caesarean section this morning. Her ECG shows sinus tachycardia and is otherwise largely unremarkable tracing. Poor R-wave progression is not indicative of a previous anterior wall infarction. There are no pathological Q-wave. In addition to this the electrocardiogram that was done in in her maternal medicine appointment several months ago if is unchanged from this morning's tracing other than the heart rate is slower. Her cardiovascular physical exam is negative. At this time I do not think we need to be concerned that there has been a cardiac ischemic event. Despite her diabetes her risk factors for a coronary artery disease are vanishingly small. Dario Juarez MD [facility] History of Present Illness History of Present Illness Consult date/time: 02/25/21 13:55 Reason For Visit: IOL Narrative: This is a 20-year-old lady that I am seeing at the request of the research environmental engineer this afternoon in the hospital because of concern regarding tachycardic during and after a Caesarean section that occurred this morning. Patient is recovering in Labor and delivery does not have any specific cardiac complaints at this time she states she as far she is aware has not had any prior cardiovascular problems or diagnosis. She does have type 2 diabetes and has been followed by Maternal- Medicine at [place] and apparently a recommendation was for induction for delivery of the baby at 37 weeks. She was admitted for induction and delivery and because of failure to progress in labor and maternal exhaustion a Caesarean section was performed. During the operation apparently she was unusually tachycardic and in recovery an ECG was done. The machine reading of the EKG comments on evidence of a previous anterior infarction. My personal review the tracing it would not lead to this interpretation. She has sinus tachycardia with poor R-wave progression in the precordial leads and low QRS voltage but no evidence of a previous infarction. There are no pathological Q-waves. Since I am a member of the [facility] Medical group I was able to review the ECG from the maternal medicine appointment several months ago at [place]. That ECG is identical to the 1 that we are looking at today other than she is less tachycardic. She denies any episodes of chest pain pressure or heaviness she has not been experiencing orthopnea PND or accumulating lower extremity edema she has never had a syncopal episode. Review of Systems Constitutional: Constitutional: Reports no additional constitutional complaints Eyes: Eyes: Reports no additional eye complaints ENT: Reports system reviewed and no additional complaints, except as documented Cardiovascular: Cardiovascular: Reports no additional cardiovascular complaints Respiratory: Respiratory: Reports no additional respiratory complaints Gastrointestinal: Gastrointestinal: Reports no additional gastrointestinal complaints Musculoskeletal: Musculoskeletal: Reports no additional musculoskeletal complaints Integumentary/Breasts: Skin/Breast: Reports system reviewed and no additional complaints, except as docu Neurologic: Reports system reviewed and no additional complaints, except as documented Endocrine: Endocrine: Reports no additional endocrine complaints Hematologic/Lymphatic: Hematologic/Lymphatic: Reports no additional hematologic/lymphatic complaints Allergic/Immunologic: Allergic/Immunologic: Reports no additional allergic/immunologic complaints PMFSH Past Medical History Medical History (Updated 02/23/21 @ 06:23 by Nell Maradiaga CRNA) Depression Gestational diabetes mellitus (GDM) affecting eighth IUP (intrauterine ), incidental Obesity (BMI 30-39.9) Family History Family History (Updated 02/12/21 @ 14:49 by Leatha Khan RN) Grandparent Hypert
[2021-02-25 14:05] LABS: Glucose Point of Care 133 mg/dl (65-105)
[2021-02-25 14:05] LABS: Glucose Point of Care 140 mg/dl (65-105)
--- NOTE | 2021-02-25 14:16 | PC.NURSE ---
Repeat H/H drawn at this time.
[2021-02-25] MEDS: GENTAMICIN 60 MG/50 ML NS 60 MG/50 ML BAG 100 MG IVPB ×2 (14:17→22:31)
[2021-02-25 14:35] LABS: Hematocrit 36.3 % (37.0-47.0); Hemoglobin 12.5 g/dL (12.0-15.0)
[2021-02-25] MEDS: INSULIN ASPART (*BKC) 100 UNITS/ML 14 UNITS SUB-Q (17:17)
[2021-02-25 17:23] LABS: Glucose Point of Care 140 mg/dl (65-105)
--- NOTE | 2021-02-25 17:53 | PC.NURSE ---
Pt tolerated clear liquid tray and is now sitting up having light diab const carb dinner. Having some incisional pain, meds given. Pt states overall feeling well. Denies any other needs at this time. Call light within reach and encouraged to call with any needs/questions.
[2021-02-25] MEDS: HYDROcodone/acetaminophen (*CRX) 5-325 MG TABLET 1 TAB PO (17:57)
--- NOTE | 2021-02-25 18:10 | PC.NURSE ---
Report given to Twila Castro RN to cont pp care of pt.
[2021-02-25] MEDS: KETOROLAC 30 MG/ML VIAL (*BKC) IV PUSH (20:58)
[2021-02-25] MEDS: POLYSACCHARIDE IRON COMPLEX 150 MG CAPSULE PO (21:01)
[2021-02-25] MEDS: DOCUSATE SODIUM 100 MG CAPSULE PO (21:01)
[2021-02-25 22:35] LABS: Glucose Point of Care 45 mg/dl (65-105)
[2021-02-25 22:35] LABS: Glucose Point of Care 79 mg/dl (65-105)
[2021-02-26] VITALS (10 sets, daily range): BP systolic 111–128; BP diastolic 63–83; PULSE 95–116; TEMP 36.1–37.4; O2SAT 93–97
[2021-02-26] MEDS: INSULIN HUMAN NPH (*BKC) 100 UNITS/ML 24 UNITS SUB-Q (00:08)
[2021-02-26] MEDS: HYDROcodone/acetaminophen (*CRX) 5-325 MG TABLET 1 TAB PO (00:08)
[2021-02-26] MEDS: AMPICILLIN 1 GM/NS 50 ML 1 GM/50 ML BAG IVPB ×3 (00:12→12:52)
[2021-02-26] MEDS: ONDANSETRON INJ 4 MG/2 ML VIAL IV PUSH ×2 (05:20→21:45)
[2021-02-26] MEDS: CLINDAMYCIN 900 MG/D5W 50 ML 900 MG/50 ML PIGGYBACK 50 MG IVPB ×2 (05:20→13:30)
[2021-02-26] MEDS: KETOROLAC 30 MG/ML VIAL (*BKC) IV PUSH ×3 (05:20→21:46)
[2021-02-26 05:39] LABS: Glucose Point of Care 75 mg/dl (65-105)
[2021-02-26 05:59] LABS: Basophils Percent Auto 0.2 % (0.2-1.2); Hematocrit 32.3 % (37.0-47.0); Immature Granulocyte Absolute 0.06 K/mm3 (0.00-0.031); Immature Granulocyte Percent A 0.5 % (0-0.5); Lymphocytes Absolute Auto 0.39 K/mm3 (0.9-3.2); Lymphocytes Percent Auto 3.2 % (18.3-44.2); Mean Corpuscular HGB Conc 34.1 g/dl (32-36); Mean Corpuscular Hemoglobin 30.9 pg (26-34); Mean Corpuscular Volume 90.7 fl (80-100); Mean Platelet Volume 10.6 fl (7.4-10.4); Monocytes Absolute Auto 0.5 K/mm3 (0.1-0.6); Monocytes Percent Auto 4.4 % (2.6-8.5); Neutrophils Absolute Auto 11.1 K/mm3 (1.3-6.7); Neutrophils Percent Auto 91.7 % (45.5-73.1); Platelet Count Result 160 k/mm3 (150-375); Red Blood Count 3.56 M/mm3 (4.2-5.4); Red Cell Distribution Width 13.8 % (11.5-14.5); White Blood Count 12.1 K/mm3 (4.5-10.0)
[2021-02-26] MEDS: INSULIN ASPART (*BKC) 100 UNITS/ML 10 UNITS SUB-Q (06:00)
[2021-02-26] MEDS: INSULIN HUMAN NPH (*BKC) 100 UNITS/ML 20 UNITS SUB-Q (06:01)
[2021-02-26] MEDS: GENTAMICIN 60 MG/50 ML NS 60 MG/50 ML BAG 100 MG IVPB (07:26)
--- NOTE | 2021-02-26 07:53 | WPDANLDNPN2 ---
Anes-Prog Note L&D-Neuraxial Date/Time: 02/26/21 07:53 Neuraxial medications: epidural PF morphine Opiod-related complaints: none Patient feedback: Patient satisfied with post-operative pain management.
--- NOTE | 2021-02-26 07:53 | WPDANLDPN2 ---
Anes-Prog Note L&D Date/Time: 02/26/21 07:53 Comfortable throughout: section Epidural/Spinal procedure site: clean & non-tender Neuro status: Neuro function grossly intact. Cardiovascular status: normal Respiratory status: normal Airway patency: baseline Mental status: baseline Post-Op hydration status: normal Vital Signs: Last Vital Signs Temp 36.1 C L 02/26/21 07:33 Pulse 98 02/26/21 07:33 Resp 18 02/25/21 16:51 BP 116/76 02/26/21 07:33 Pulse Ox 95 02/26/21 05:25 Pain score (VAS): 3 I/O: Intake & Output 02/25/21 02/25/21 02/26/21 15:59 23:59 07:59 Intake Total 1250 390 100 Output Total 688 321 800 Balance 562 -431 -168 Post-procedural complaints: none Patient feedback: Patient satisfied with anesthetic care.
[2021-02-26] MEDS: SERTRALINE HCL 50 MG TABLET PO (09:24)
--- NOTE | 2021-02-26 11:09 | PM.OBPNVD ---
OB - PN: Subj Subjective Date/time seen: 02/26/21 11:09 Patient comments: no complaints and incisional pain baby status: NICU feeding status: pumping and storing Narrative: POD 1 from primary CS. Doing well. Normal lochia. Eating, ambulating, ramírez out. Has not voided yet. Mini is significantly improved and has no seizures, may get extubated today, and is reacting to stimuli. OB - PN: Obj Data Labs CBC & Chem 7: 02/26/21 05:37 02/23/21 00:28 Labs: Laboratory Results - last 24 hr 02/25/21 02/25/21 02/25/21 11:49 11:56 13:08 WBC RBC Hgb 14.9 Hct 45.5 MCV MCH MCHC RDW Plt Count MPV Immature Gran % (Auto) Neut % (Auto) Lymph % (Auto) [place] % (Auto) Eos % (Auto) Baso % (Auto) Lymph # (Auto) [place] # (Auto) Eos # (Auto) Baso # (Auto) Abs Immat Gran (auto) Absolute Neuts (auto) Absolute Nucleated RBC Nucleated RBC % POC Capillary Glucose 140 H Troponin I < 0.012 02/25/21 02/25/21 02/25/21 14:02 14:16 17:15 WBC RBC Hgb 12.5 Hct 36.3 L MCV MCH MCHC RDW Plt Count MPV Immature Gran % (Auto) Neut % (Auto) Lymph % (Auto) [place] % (Auto) Eos % (Auto) Baso % (Auto) Lymph # (Auto) [place] # (Auto) Eos # (Auto) Baso # (Auto) Abs Immat Gran (auto) Absolute Neuts (auto) Absolute Nucleated RBC Nucleated RBC % POC Capillary Glucose 133 H 140 H Troponin I 02/25/21 02/25/21 02/26/21 20:57 22:27 05:36 WBC RBC Hgb Hct MCV MCH MCHC RDW Plt Count MPV Immature Gran % (Auto) Neut % (Auto) Lymph % (Auto) [place] % (Auto) Eos % (Auto) Baso % (Auto) Lymph # (Auto) [place] # (Auto) Eos # (Auto) Baso # (Auto) Abs Immat Gran (auto) Absolute Neuts (auto) Absolute Nucleated RBC Nucleated RBC % POC Capillary Glucose 45 L* 79 75 Troponin I 02/26/21 05:37 WBC 12.1 H RBC 3.56 L Hgb 11.0 L Hct 32.3 L MCV 90.7 MCH 30.9 MCHC 34.1 RDW 13.8 Plt Count 160 MPV 10.6 H Immature Gran % (Auto) 0.5 Neut % (Auto) 91.7 H Lymph % (Auto) 3.2 L [place] % (Auto) 4.4 Eos % (Auto) 0.0 Baso % (Auto) 0.2 Lymph # (Auto) 0.39 L [place] # (Auto) 0.5 Eos # (Auto) 0.0 Baso # (Auto) 0.0 Abs Immat Gran (auto) 0.06 H Absolute Neuts (auto) 11.1 H Absolute Nucleated RBC 0.0 Nucleated RBC % 0.0 POC Capillary Glucose Troponin I OB - PN A/P Assessment and Plan (1) DM2 (diabetes mellitus, type 2): Code(s): E11.9 - Type 2 diabetes mellitus without complications Status: Acute (2) delivery delivered: Code(s): O82 - Encounter for delivery without indication Status: Acute (3) Tachycardia, unspecified: Code(s): R00.0 - Tachycardia, unspecified Status: Acute Plan day: 1 Plan: routine care Comments: tachycardia much improved/resolved cardiology not concerned, appreciate consult. routine post op care. may go on pass tomorrow to NICU, pt desires DC home sunday. support given, questions answered. insulin doses decreased this am as had some lows. will continue to monitor. will contact her ton container filler re going back on trulicity in a few weeks. Time Spent With Patient Time: Total time spent is greater than 50% in coordination of care (as documented) at patient's floor/unit and/or counseling patient: Exam Narrative: NAD abdomen soft, appropriately tender, incision bandaged Extremities nontender with 1+ edema
[2021-02-26] MEDS: DOCUSATE SODIUM 100 MG CAPSULE PO (11:17)
[2021-02-26] MEDS: SIMETHICONE 80 MG TAB.CHEW PO ×2 (11:17→17:05)
--- NOTE | 2021-02-26 13:45 | PCDIET ---
Called Dr. Minor with blood sugar results. Instructed to hold insulin at this time.
--- NOTE | 2021-02-26 13:45 | PC.NURSE ---
Pt given juice to increase blood sugar.
[2021-02-26] MEDS: HYDROcodone/acetaminophen (*CRX) 10-325 MG TABLET 1 TAB PO (14:05)
[2021-02-26 14:09] LABS: Glucose Point of Care 55 mg/dl (65-105)
[2021-02-26 14:23] LABS: Gentamicin Trough 0.8 ug/mL (<1.0)
[2021-02-26 15:14] LABS: Glucose Point of Care 40 mg/dl (65-105)
[2021-02-26 15:14] LABS: Glucose Point of Care 45 mg/dl (65-105)
--- NOTE | 2021-02-26 15:15 | PC.NURSE ---
Pt given milk and cheese to increase blood sugar.
--- NOTE | 2021-02-26 16:15 | PC.NURSE ---
Pt given a popsicle to increase blood sugar.
[2021-02-26 16:21] LABS: Glucose Point of Care 43 mg/dl (65-105)
[2021-02-26] MEDS: GLUCOSE ORAL GEL 15 GM OF GLUCSE IN 37.5 GM TUBE PO (16:42)
--- NOTE | 2021-02-26 16:45 | PC.NURSE ---
Pt given glucose gel to increase blood sugar. Pt unable to tolerate without nausea. Able to use half of tube, then had to stop. Tried eating a candy bar, but had nausea after one bite.
[2021-02-26] MEDS: IBUPROFEN 600 MG TABLET PO (17:05)
--- NOTE | 2021-02-26 17:10 | PC.NURSE ---
Pt given Mylicon, and Ibuprofen with soda, and then vomited after.
[2021-02-26 17:56] LABS: Glucose Point of Care 48 mg/dl (65-105)
[2021-02-26 17:56] LABS: Glucose Point of Care 47 mg/dl (65-105)
[2021-02-26 17:56] LABS: Glucose Point of Care 95 mg/dl (65-105)
--- NOTE | 2021-02-26 18:00 | PC.NURSE ---
Called Dr. Minor with update on pt. Informed of blood sugars and interventions done. Orders received.
[2021-02-26 21:49] LABS: Glucose Point of Care 91 mg/dl (65-105)
[2021-02-26] MEDS: MORPHINE SULFATE (*CRX) 2 MG/ML INJ 1 MG IV PUSH (22:50)
[2021-02-27] VITALS (16 sets, daily range): BP systolic 112–125; BP diastolic 64–82; PULSE 77–101; RESP 18–20; TEMP 37–37.3; O2SAT 92–98
[2021-02-27] MEDS: SIMETHICONE 80 MG TAB.CHEW PO (05:30)
[2021-02-27] MEDS: KETOROLAC 30 MG/ML VIAL (*BKC) IV PUSH (05:40)
[2021-02-27 05:49] LABS: Glucose Point of Care 85 mg/dl (65-105)
[2021-02-27 07:31] LABS: Glucose Point of Care 97 mg/dl (65-105)
[2021-02-27 07:37] LABS: Basophils Percent Auto 0.1 % (0.2-1.2); Eosinophils Percent Auto 0.2 % (0-4.4); Hematocrit 33.1 % (37.0-47.0); Hemoglobin 11.1 g/dL (12.0-15.0); Immature Granulocyte Absolute 0.07 K/mm3 (0.00-0.031); Immature Granulocyte Percent A 0.6 % (0-0.5); Lymphocytes Absolute Auto 1.17 K/mm3 (0.9-3.2); Lymphocytes Percent Auto 10.1 % (18.3-44.2); Mean Corpuscular HGB Conc 33.5 g/dl (32-36); Mean Corpuscular Hemoglobin 30.6 pg (26-34); Mean Corpuscular Volume 91.2 fl (80-100); Mean Platelet Volume 10.6 fl (7.4-10.4); Monocytes Absolute Auto 0.7 K/mm3 (0.1-0.6); Monocytes Percent Auto 5.9 % (2.6-8.5); Neutrophils Absolute Auto 9.7 K/mm3 (1.3-6.7); Neutrophils Percent Auto 83.1 % (45.5-73.1); Platelet Count Result 218 k/mm3 (150-375); Red Blood Count 3.63 M/mm3 (4.2-5.4); Red Cell Distribution Width 13.7 % (11.5-14.5); White Blood Count 11.6 K/mm3 (4.5-10.0)
--- NOTE | 2021-02-27 08:11 | PC.NURSE ---
Dr. Minor informed of CBC results, and blood sugars from this morning. informed pt is passing gas, but abdomen still looks distended. informed pt wanting to be discharged today. Insulin orders received.
[2021-02-27] MEDS: Acetaminophen/HYDROcodone ELIXIR (*CRX) 7.5 MG/15 ML UDC 5 MG PO (08:27)
[2021-02-27] MEDS: INSULIN HUMAN NPH (*BKC) 100 UNITS/ML 12 UNITS SUB-Q (08:30)
[2021-02-27] MEDS: SERTRALINE HCL 50 MG TABLET PO (09:19)
--- NOTE | 2021-02-27 10:33 | PM.OBPNVD ---
OB - PN: Subj Subjective Date/time seen: 02/27/21 10:33 Patient comments: no complaints, pain well controlled, tolerating diet and flatus present baby status: NICU OB - PN: Obj Data Labs CBC & Chem 7: 02/27/21 07:20 02/23/21 00:28 Labs: Laboratory Results - last 24 hr 02/26/21 02/26/21 02/26/21 13:39 13:42 15:04 WBC RBC Hgb Hct MCV MCH MCHC RDW Plt Count MPV Immature Gran % (Auto) Neut % (Auto) Lymph % (Auto) [place] % (Auto) Eos % (Auto) Baso % (Auto) Lymph # (Auto) [place] # (Auto) Eos # (Auto) Baso # (Auto) Abs Immat Gran (auto) Absolute Neuts (auto) Absolute Nucleated RBC Nucleated RBC % POC Capillary Glucose 55 L* 45 L* Gentamicin Trough 0.8 02/26/21 02/26/21 02/26/21 15:07 16:13 16:41 WBC RBC Hgb Hct MCV MCH MCHC RDW Plt Count MPV Immature Gran % (Auto) Neut % (Auto) Lymph % (Auto) [place] % (Auto) Eos % (Auto) Baso % (Auto) Lymph # (Auto) [place] # (Auto) Eos # (Auto) Baso # (Auto) Abs Immat Gran (auto) Absolute Neuts (auto) Absolute Nucleated RBC Nucleated RBC % POC Capillary Glucose 40 L* 43 L* 48 L* Gentamicin Trough 02/26/21 02/26/21 02/26/21 17:04 17:50 21:38 WBC RBC Hgb Hct MCV MCH MCHC RDW Plt Count MPV Immature Gran % (Auto) Neut % (Auto) Lymph % (Auto) [place] % (Auto) Eos % (Auto) Baso % (Auto) Lymph # (Auto) [place] # (Auto) Eos # (Auto) Baso # (Auto) Abs Immat Gran (auto) Absolute Neuts (auto) Absolute Nucleated RBC Nucleated RBC % POC Capillary Glucose 47 L* 95 91 Gentamicin Trough 02/27/21 02/27/21 02/27/21 05:37 07:16 07:20 WBC 11.6 H RBC 3.63 L Hgb 11.1 L Hct 33.1 L MCV 91.2 MCH 30.6 MCHC 33.5 RDW 13.7 Plt Count 218 MPV 10.6 H Immature Gran % (Auto) 0.6 H Neut % (Auto) 83.1 H Lymph % (Auto) 10.1 L [place] % (Auto) 5.9 Eos % (Auto) 0.2 Baso % (Auto) 0.1 L Lymph # (Auto) 1.17 [place] # (Auto) 0.7 H Eos # (Auto) 0.0 Baso # (Auto) 0.0 Abs Immat Gran (auto) 0.07 H Absolute Neuts (auto) 9.7 H Absolute Nucleated RBC 0.0 Nucleated RBC % 0.0 POC Capillary Glucose 85 97 Gentamicin Trough OB - PN A/P Plan day: 2 Plan: routine care and discharge home (Follow up in 1 week) Time Spent With Patient Time: Total time spent is greater than 50% in coordination of care (as documented) at patient's floor/unit and/or counseling patient: Time with patient: less than 15 minutes Review of Systems Review of Systems: All systems reviewed & are unremarkable except as noted in HPI and below Exam Narrative: Fundus firm. Vaginal flow controlled. Incision dry and intact. Negative homans. No redness, warmth, or pain of lower ext. Const: General: comfortable Chest: Breast/axilla inspection: normal inspection of the breasts Resp: Effort & Inspection: normal respiratory effort Auscultation: clear to auscultation bilaterally Cardio: Rate: regular rate GI: GI Palp: Yes Soft to palpation Psych: Appearance: grossly normal Affect: normal affect Attitude: cooperative Thought content: Yes Normal thought content present Judgement: Good judgement present (Psych)
[2021-02-27 10:43] LABS: Glucose Point of Care 115 mg/dl (65-105)
[2021-02-27] MEDS: IBUPROFEN SUSPENSION 200 MG/10 ML UDC 600 MG PO (12:50)
--- NOTE | 2021-03-14 07:53 | PM.DS ---
DS: Admitting Diagnosis Discharge Date 02/27/21 Admitting Diagnosis DM2, IUP at 37w DS: Discharge Diagnosis Discharge Diagnosis (1) delivery delivered: Code(s): O82 - Encounter for delivery without indication Status: Acute (2) DM2 (diabetes mellitus, type 2): Code(s): E11.9 - Type 2 diabetes mellitus without complications Status: Acute DS: Summary Hospital Course Hospital Course: Soni presented for induction of labor for uncontrolled DM2. She received cervidil x2 and then pitocin. It was a prolonged induction. An attempted vacuum assisted vaginal delivery was attempted but unsuccessful so she had a primary section. Baby was transferred to [facility] following a long and complicated rescuscitation. Soni's course was otherwise uncomplicated and she was discharged on POD2. Status at Discharge Functional status at discharge: independent ambulation Time Spent with Patient Time attestation: Total time spent providing and/or coordinating discharge services: Exam Narrative: NAD abdomen soft, appropriately tender, incision CDI Discharge Plan Discharge Attending physician on discharge: Idalia Minor Consulting providers: Elvira Campbell ; Dario Juarez ; Vitor Salgado Discharging Clinician: Elvira Campbell Anticipated Discharge Date/Time: 02/27/21 07:57 Patient Disposition: Home, Self-Care Activity: may drive after 2 weeks and pelvic rest Diet: as tolerated Wound Care Instructions: follow printed instructions Discharge Instructions: Pt will be taking otc ibuprofen. Already has NPH insulin at home. Education: Mom and Baby Guide Given to: Mother Follow-Up: Call your delivering provider's office for an appointment to be seen in: 1 Week BREAST CARE: * Wear a snug supportive bra. * For engorgement discomfort: Breast Feeding: * Apply warm moist washcloths * Express milk as needed to relieve engorgement * Wear loose clothing ABDOMINAL INCISION: (if applicable) * Allow incision to air dry * Do NOT use lotions for powders on your incision * When showering, allow soap and water to run over the incision, but do not wash incision EPISIOTOMY/PERINEAL CARE: * Until bleeding stops, use your cheryl bottle after urinating * Change your pad frequently throughout the day * You may take sitz baths several times a day (fill your bathtub with warm water and soak for 20 minutes.) Do NOT bathe in the water * No tub baths until seen by your physician - You may shower ACTIVITY: * Rest as much as possible. * Do not exercise or lift anything heavier than 10 lbs (such as laundry.) * Avoid stairs or driving as much as possible. * Do not put anything into the vagina. No douching, tampons, or sexual activity until seen by physician. NOTIFY PHYSICIAN IF YOU HAVE ANY QUESTIONS OR IF ANY OF THE FOLLOWING SYMPTOMS OCCUR: * If your episiotomy or incision becomes red, swollen, or more painful than what you have experienced in the hospital. * If your vaginal bleeding becomes foul smelling. * If your vaginal bleeding becomes more heavy than a period or if your bleeding changes from pink to bright red. However, you may pass an occasional walnut-sized clot once or twice for the first week . * If you experience a sharp, shooting pain in you calves. * If you discover a hard, reddened area on your breast or if you experience flu-like symptoms. DIET: * Eat regular, well-balanced meals. * Drink plenty of fluids daily. If , drink to thirst. Stand Alone Forms: General Discharge Information Follow-up/Referrals: Idalia Minor MD [Physician] - Call for Appointment (To be seen in 1 week ) Discharge Medications: New Novolin N NPH U-100 Insulin 100 unit/mL Suspension 16 unit subcut HS Qty: 10 RF: 0 Novolin N NPH U-100 Insulin 100 unit/mL Suspension 12 unit subcut DOMINGA
== END 2021-02-27 14:02 | disposition home or self-care (01) | DRG 788 ==
PROVIDERS: Admitting Provider Obstetrics & Gynecology; Visit Provider Obstetrics & Gynecology
PROC: 10D00Z1 Extraction of Products of Conception, Low, Open Approach (ICD-10-PCS; CPT 59514; principal; 2021-02-25 10:00)
DX: O32.4XX0 Maternal care for high head at term, not applicable or unspecified (principal); O75.81 Maternal exhaustion complicating labor and delivery; O75.4 Other complications of obstetric surgery and procedures; O99.824 Streptococcus B carrier state complicating childbirth; O99.344 Other mental disorders complicating childbirth; F32.A Depression, unspecified; O99.214 Obesity complicating childbirth; O24.424 Gestational diabetes mellitus in childbirth, insulin controlled; O66.5 Attempted application of vacuum extractor and forceps; O42.92 Full-term premature rupture of membranes, unspecified as to length of time between rupture and onset of labor; O77.0 Labor and delivery complicated by meconium in amniotic fluid; O69.81X0 Labor and delivery complicated by cord around neck, without compression, not applicable or unspecified; R00.0 Tachycardia, unspecified; O76 Abnormality in fetal heart rate and rhythm complicating labor and delivery; Z3A.37 37 weeks gestation of pregnancy; Z37.0 Single live birth
CPT/HCPCS: 36415; 80053; 80170; 82948; 84484; 85014; 85018; 85025; 86592; 86850; 86900; 86901; 93005; A9270; J0131; J0290; J0330; J0456; J0690; J1100; J1580; J1815; J1885; J2210; J2250; J2270; J2274; J2405; J2590; J2704; J3010; J7120